=== PATIENT | female | born 1940 | race Caucasian/White ===

== ENCOUNTER 2016-07-04 04:49 | Observation (INO) | payer MEDICARE, BC, OTHER ==
--- NOTE | ~2016-07-04 | ST ---
Unit #: [id number] #: [id number] Patient: MISHA LEON [id number] [address] [address] [id number] I MR#: [id number] NAME: MISHA LEON : 1940 SEX: F STUDY DATE/TIME: 07/05/2016 UNIT: [facility] ROOM: [facility] STUDY DESCRIPTION: Attending Physician: Francisco Aguilar M.D. CARDIOLOGY REPORT EXAM Stress ECG Results included in stress nuclear and ECG combined report. Dictated by... Andry Levy/radha TD: 07/05/2016 22:00 JOB #: [id number] CARDIOLOGY REPORT Page 1 of 1 X Sanket Carter MD CARDIOLOGY REPORT
--- NOTE | ~2016-07-04 | EKG ---
PATIENT: MISHA LEON UNIT #: [id number] Ventricular Rate: 69 BPM Atrial Rate: 69 BPM P-R Interval: 172 ms QRS Duration: 94 ms Q-T Interval: 408 ms QTC Calculation(Bezet): 437 ms P [place]: 67 degrees Calculated R [place]: 7 degrees Calculated T [place]: 74 degrees Diagnosis Line: Normal sinus rhythm Diagnosis Line: Nonspecific T wave abnormality Diagnosis Line: Abnormal ECG Diagnosis Line: When compared with ECG of 29-DEC-2014 07:53, Diagnosis Line: Premature ventricular complexes are no longer Diagnosis Line: Present Diagnosis Line: Vent. rate has decreased BY 46 BPM Diagnosis Line: Incomplete right bundle branch block is no longer Diagnosis Line: Present Diagnosis Line: Criteria for Inferior infarct are no longer Diagnosis Line: Present Diagnosis Line: Confirmed by CECIL FUCHS MD ([id number]) on Diagnosis Line: 07/05/2016 8:46:52 AM INTERPRETING MD: JEF STEWART
--- NOTE | ~2016-07-04 | CR72 ---
[facility] A Service of [facility] & [facility] RADIOLOGY TEXT RESULTS PATIENT: MISHA LEON LOCATION: [facility] [id number] : 38 UNIT #: [id number] AGE: [address]: Francisco Aguilar MD SEX: F ORDER DR: [id number] [facility] [address] [place], [place] [address] [id number] I MR#: [id number] Acc #: [id number] NAME: MISHA LEON : 1940 SEX: F STUDY DATE/TIME: 07/04/2016 6:20 UNIT: [facility] ROOM: [facility] STUDY DESCRIPTION: CR Chest Single View Portable Attending Physician: Francisco Aguilar M.D. Ordering Physician: Tushar Campos M.D. Primary Care Physician: Primary Care Physician No MEDICAL IMAGING REPORT This report is preliminary unless electronic signature is present EXAM Portable chest one-view 07/04/2016 COMPARISON 12/29/2014 CLINICAL HISTORY: Chest pain and pressure for one night. FINDINGS Heart size within normal limits. No consolidation or effusion or pneumothorax. Osteopenia and chronic change in the left distal clavicle and AC joint but no acute bony abnormality. No acute findings. No definite interval change since 12/29/2014. Dictated by... Reyes Martinez M.D. THIS IS AN ELECTRONICALLY VERIFIED REPORT Reyes Martinez M.D. at 07/06/2016 1:49 PM VIOLET/rosalia TD: 07/04/2016 08:21 JOB #: [id number] MEDICAL IMAGING REPORT Page 1 of 1 COPY
--- NOTE | ~2016-07-04 | HP ---
Unit #: [id number] #: [id number] Patient: MISHA LEON [id number] [address] [address] [id number] E MR#: [id number] NAME: MISHA LEON ROOM: Age: 76 Sex: F Admission Date: 07/04/2016 : 1940 Attending Physician: Tushar Campos M.D. Primary Care Physician: No Primary Care Physician HISTORY AND PHYSICAL CHIEF COMPLAINT Chest pain. She is a 76-year-old female who lives in a chcf. She has a history of hypertension, high cholesterol, question of mild coronary disease. She came this morning. She has substernal chest pain. She was given nitroglycerin. At this moment, she is pain free. She denies orthopnea, PND, palpitations and syncope. PAST MEDICAL HISTORY Positive for: 1. Hypertension. 2. High cholesterol. 3. She also has a history of Parkinsonism and dementia. 4. Also has a history of frequent falls. 5. Seizure disorder. PAST SURGICAL HISTORY She has a history of: 1. Appendectomy. 2. Cholecystectomy. 3. Hip surgery. 4. Nerve stimulator. ALLERGIES She is allergic to Cipro, sulfa and heparin. MEDICATIONS 1. She takes Coreg 3.125 mg twice a day. 2. She takes hydralazine 25 mg three times a day. 3. Zocor 40 mg once a day. 4. Dilantin 300 mg p.o. daily. 5. Protonix 40 mg daily. 6. She also takes Remeron. FAMILY HISTORY Negative for premature CAD. SOCIAL HISTORY She doesn't smoke, doesn't drink. She lives in a chcf. REVIEW OF SYSTEMS The patient denies any blurred vision or headache. Denies any cough or sore throat, sputum and fever. Denies shortness of breath but has chest Unit #: [id number] #: [id number] Patient: MISHA LEON pain. Denies any palpitations or syncope. Denies any dysphagia, heartburn, diarrhea, constipation. Denies any back pain. The patient has stiffness and has difficulty walking. She walks with assistance. Denies any skin rash or any problem with her skin. All of the systems reviewed, they are negative. PHYSICAL EXAMINATION GENERAL: She is lying comfortably in bed. VITAL SIGNS: Heart rate is 80, blood pressure 140/60. She is breathing a respiratory rate of 16. HEENT: Eyes - conjunctivae normal. Pupils round, reactive. Oral mucosa is moist. No central cyanosis. NECK: She has no thyromegaly. Carotid upstroke is normal. No bruit. JVD is not elevated. CHEST: She is breathing normal. Clear on auscultation. CARDIAC EXAM: She has no parasternal lift. S1, S2 normally heard. No gallop, no murmur. ABDOMEN: Soft. Liver and spleen not enlarged. Abdominal aorta not palpable. Guaiac test not indicated. EXTREMITIES: She has no pedal edema. 2+ bilateral femoral and dorsalis pedis pulses. There is no clubbing. SKIN: No rash or abnormal pigmentation. NEUROLOGICAL EXAM: Muscle tone in the upper and lower extremities is slightly increased. There is some stiffness. Her mood is normal. She is oriented x3. DIAGNOSTIC STUDIES CARDIOVASCULAR: EKG showing normal sinus rhythm, normal EKG. LABORATORY: Her troponin is normal. Sodium is 129, potassium 3.5. All other blood work is normal. ASSESSMENT 1. Patient is definitely having unstable angina. 2. History of hypertension. 3. History of atrial fibrillation. 4. History of Parkinsonism with history of seizure disorders. PLAN I will admit her on a monitored bed. We will give her aspirin and rule out myocardial infarction. I will continue with the Coreg but add low dose Norvasc. I will do an echo and Lexiscan Cardiolite. If her Cardiolite is positive, she will need cardiac cath. Otherwise, we will treat her medically. We will also have hospitalist service to look after medication for her parkinsonism. Dictated by Andry Penaloza/christian TD: 07/04/2016 09:29 JOB #: [id number] Unit #: [id number] #: [id number] Patient: MISHA LEON HISTORY AND PHYSICAL Page 1 of 1 X Francisco Aguilar MD HISTORY AND PHYSICAL
--- NOTE | ~2016-07-04 | TH ---
Unit #: [id number] #: [id number] Patient: MISHA LEON [id number] [address] [address] [id number] I MR#: [id number] NAME: MISHA LEON : 1940 SEX: F STUDY DATE/TIME: 07/05/2016 UNIT: [facility] ROOM: [facility] STUDY DESCRIPTION: Attending Physician: Francisco Aguilar M.D. CARDIOLOGY REPORT EXAM Stress nuclear and ECG combined. INDICATION Chest pain, inability to exercise adequately. SUMMARY Patient received Lexiscan intravenously while at rest, as well as technetium 99 Cardiolite 11.01 and 32.5 mCi at rest and stress, respectively. Appropriate views were obtained. FINDINGS The patient did not experience any symptoms during the stress. The heart rate increased from 83 to 122 (85%), and the blood pressure increased from 143/86 to 155/94, transiently decreasing to 132/86. The patient did not experience chest pain during the study. The rest ECG is abnormal with 0.[address] depression in leads V4-V6 and in lead I. The ST segments are somewhat squared off in lead AVF. With stress, there was slight exaggeration of the changes noted above but no diagnostic ST shifts. There were no dysrhythmias or heart block. Perfusion images demonstrate normal perfusion throughout the myocardium both at rest and stress. There is no significant patient motion noted. There is normal lung uptake and no LV or RV enlargement. Summed stress score is zero. Gated perfusion wall motion analysis demonstrates end-diastolic volume 50 mL and ejection fraction greater than 65%. IMPRESSION 1. Stress nuclear study shows no evidence of ischemia or infarction. This is a normal study. Patient may be discharged. 2. Small ventricle with normal wall motion and excellent ejection fraction. 3. ST changes may represent left ventricular hypertrophy but no significant ischemic cardiac disease identified. 1. Dictated by... Sanket Caretr M.D. Perico TD: 07/05/2016 21:58 Unit #: [id number] #: [id number] Patient: MISHA LEON JOB #: [id number] CARDIOLOGY REPORT Page 1 of 1 X Sanket Carter MD CARDIOLOGY REPORT
--- NOTE | ~2016-07-04 | DS ---
Unit #: [id number] #: [id number] Patient: MISHA PAL [id number] [place], [place] [address] [id number] I MR#: [id number] NAME: MISHA PAL ROOM: 568 Age: 76 Sex: F Admission Date: 07/04/2016 : 1940 Discharge Date: 07/05/2016 Attending Physician: Francisco Aguilar M.D. DISCHARGE SUMMARY ADMITTING DIAGNOSES 1. Unstable angina. 2. Hypertension. 3. History of atrial fibrillation. 4. History of parkinsonian with history of seizure disorder. 5. Hyponatremia. 6. History of coronary artery disease. DISCHARGE DIAGNOSES 1. Presumed noncardiac chest pain based on testing. 2. Hypertension. 3. Paroxysmal atrial fibrillation. 4. Parkinsonian with history of seizures. 5. History of coronary artery disease. PROCEDURE PERFORMED Chest x-ray which shows heart size within normal limits. No consolidation, effusion, or pneumothorax. No acute findings. HOSPITAL COURSE Ms. Pal is a 76-year-old female who lives in a half-way. She was brought to [facility] with substernal chest pain. She was given nitroglycerin with relief of her pain. She was evaluated by serial enzymes and complete a Cardiolite stress test. This has been read as normal per Dr. Carter showing no ischemia. Her hyponatremia has resolved. She has also displayed some hypokalemia which has been replaced. She will be treated medically. In addition, oral medications have been added to her regime including aspirin and Spironolactone, as well as Norvasc 5 mg daily. Currently, she has been evaluated by Dr. Carter, who feels as though she is ready for discharge and is stating that she is having no further chest pain. DIAGNOSTIC STUDIES LABORATORY: Troponin less than 0.03 x3 and less than 0.05 x2 upon arrival at point of care. Sodium 133, potassium 3.5, creatinine 0.4, BUN 7, glucose 102, AST 24, ALT 15, and albumin 3.9. Hemoglobin 13, hematocrit 38.6, platelets 262,000, and white blood cell count 5.4. Dilantin level 5.7. BNP of 81. PT 11.4 and INR 1.1. Unit #: [id number] #: [id number] Patient: MISHA PAL DISCHARGE MEDICATIONS 1. Sodium bicarbonate 650 mg daily. 2. Tylenol 2 tablets q.4 hours p.r.n. for mild pain. 3. Maalox 30 mg 4 times daily p.r.n. for constipation. 4. Primidone 250 mg b.i.d. 5. Lexapro 5 mg daily. 6. Remeron 15 mg at bedtime. 7. Claritin 10 mg daily. 8. Carvedilol 3.125 mg b.i.d. 9. Norvasc 5 mg daily. 10. Docusate sodium 100 mg daily, hold for loose stool. 11. Senokot 17.2 mg q.p.m. p.r.n. 12. Artificial Tears 1 drop to each eye t.i.d. 13. Zocor 10 mg daily. 14. Dilantin 300 mg at bedtime. 15. Hydralazine 25 mg t.i.d. p.r.n. for systolic blood pressure greater than 150. 16. Melatonin 6 mg q.p.m. 17. Aspirin 81 mg daily. 18. Spironolactone 25 mg daily. 19. Protonix 40 mg daily. 20. Nitroglycerin 0.4 mg sublingual p.r.n. 21. Vitamin B12 chewable tablet daily. Of note, changes to her home medication list include addition of Norvasc, aspirin, and Spironolactone, and change of hydralazine to p.r.n. instead of scheduled daily. All other medications remain the same. DISCHARGE INSTRUCTIONS 1. Diet: Low-sodium diet. 2. Activity: As tolerated. 3. Followup: With Dr. Carter in the next three to four weeks. 1. Dictated by... Brandon Perez.P.R.N. for Andry Levy TD: 07/05/2016 16:33 JOB #: [id number] DISCHARGE SUMMARY Page 1 of 1 X X DISCHARGE SUMMARY
--- NOTE | ~2016-07-04 | CO ---
Unit #: [id number] #: [id number] Patient: MISHA LEON [id number] [place], [place] [address] [id number] I MR#: [id number] NAME: MISHA LEON ROOM: [address] Age: 76 Sex: F Admission Date: 07/04/2016 : 1940 Attending Physician: Francisco Aguilar M.D. Primary Care Physician: No Primary Care Physician Consultation Date: 07/04/2016 CONSULTATION REPORT REASON FOR CONSULTATION Medical management. HISTORY OF PRESENT ILLNESS The patient is a 76-year-old female with a past medical history of coronary artery disease, atrial fibrillation, hypertension, hyperlipidemia, Parkinson disease, seizure disorder, cerebrovascular accident, GERD, depression, degenerative joint disease, von Willebrand disease, who presented to the emergency department from the group home for evaluation of the above. The patient states that she was in her usual state of health until the morning of admission when she awoke from sleep with chest pain. This occurred around 2 a.m. She states that the pain was in her mid chest. She described it as "pressure." It radiated to the left arm. She did have associated shortness of breath. She denies any nausea or diaphoresis. She received nitroglycerin by EMS. She was brought to the emergency department for further evaluation. In the emergency department, EKG showed normal sinus rhythm with a rate of 69 beats/minute. There is T wave flattening in V2 through V6. Initial cardiac enzymes are negative. She was admitted by cardiology for further evaluation. HIPS was consulted for medical management. Also of note, the patient received aspirin in the emergency department as well as nitroglycerin. Nitro paste has also been ordered. PAST MEDICAL HISTORY 1. Admission to [facility] December 29 through the 2014 for fever and possible healthcare-associated pneumonia. She also had altered mental status. 2. Coronary artery disease. I don't see a cardiac catheterization report in [facility]. Status post cardiac stent placement. 3. History of atrial fibrillation per group home records. She does not appear to be on chronic anticoagulation. She is on carvedilol. She is currently in sinus rhythm. 4. Hypertension. 5. Hyperlipidemia. 6. Parkinson disease, status post neuro stimulator. 7. Seizure disorder, maintained on Dilantin. 8. History of cerebrovascular accident. 9. GERD. 10. Depression. 11. Degenerative joint disease. 12. Possible von Willebrand disease. Unit #: [id number] #: [id number] Patient: MISHA LEON PAST SURGICAL HISTORY 1. Appendectomy. 2. Cholecystectomy. 3. Hysterectomy. 4. Tonsillectomy. 5. Left hip surgery. 6. Neuro stimulator. 7. Cardiac stent placement. SOCIAL HISTORY The patient is at a group home. There is no tobacco or alcohol use. She walks with a rolling walker. Her code status is a DO NOT RESUSCITATE per group home records. FAMILY HISTORY Notable for coronary artery disease. ALLERGIES Sulfa, ciprofloxacin, heparin. HOME MEDICATIONS 1. Protonix. 2. Sodium bicarb. 3. Carvedilol. 4. Mysoline. 5. Artificial Tears. 6. Dilantin. 7. Melatonin. 8. Zocor. 9. Tylenol. 10. Senokot. 11. Nitroglycerin. 12. Maalox. 13. Doculase. 14. Vitamin B12. 15. Lexapro. 16. Hydralazine. 17. Claritin. 18. Remeron. 19. Simvastatin. REVIEW OF SYSTEMS A complete review of systems is negative except as indicated in the HPI. DIAGNOSTIC STUDIES CARDIOVASCULAR: EKG shows normal sinus rhythm with rate of 69 beats/minute. There is T wave flattening in leads V2 through V6. IMAGING: Chest x-ray shows nothing acute. LABORATORY: Troponin is less than 0.05. Complete blood count is essentially normal. INR is 1.1. Comprehensive metabolic panel notable for sodium of 129, chloride is 96, BUN and creatinine 7 and 0.4 respectively, alkaline phosphatase is 104, BNP is 81. Unit #: [id number] #: [id number] Patient: MISHA LEON PHYSICAL EXAMINATION VITAL SIGNS: Temperature is 97.8, pulse 71, respirations 14, blood pressure 149/81. Oxygen saturation is 98% on room air. GENERAL: The patient is a very pleasant female who is awake and alert, in no acute distress. HEENT: The head is atraumatic. Mucous membranes are moist. NECK: Supple. Trachea is midline. CARDIOVASCULAR: Regular rate and rhythm. LUNGS: Clear to auscultation bilaterally with no increased work of breathing. ABDOMEN: Soft, nontender with bowel sounds present in all four quadrants. EXTREMITIES: Nontender with no pedal edema. NEURO: The patient is awake and alert. She follows commands. She is oriented x3. PSYCH: Mood and affect are normal. The patient is cooperative. SKIN: Skin of examined areas is warm and dry. ASSESSMENT The patient is a 76-year-old female with: 1. Chest pain: The patient was admitted by cardiology. Cardiolite has been ordered. 2. Hyponatremia: The patient's sodium is 129. It has been as low as 122 in the past on August 26, 2014. She is on Lexapro which could be contributing. 3. History of coronary artery disease, status post cardiac stent placement. 4. History of atrial fibrillation. 5. Hypertension. 6. Hyperlipidemia. 7. Parkinson disease, status post neuro stimulator. 8. Seizure disorder, maintained on Dilantin. 9. History of cerebrovascular accident. 10. Gastroesophageal reflux disease. 11. Depression. 12. Degenerative joint disease. 13. Possible von Willebrand disease. PLAN 1. Regarding chest pain, the patient is scheduled for stress test in the morning. 2. Regarding hyponatremia, I have ordered urine sodium and osmolality as well as serum osmolality. Chest x-ray showed no acute abnormality. I will hold Lexapro which could be contributing. The patient appears to be relatively euvolemic although she states that she has had decreased appetite and somewhat loose stool. I have also started normal saline at 75 mL/hour. 3. Regarding seizure disorder, the patient is on Dilantin. I have ordered a Dilantin level. She states that her last seizure was about a year ago. 4. Regarding Parkinson disease, the patient has a neuro stimulator. Thank you very much for the consultation. We will follow the patient along closely with you. Unit #: [id number] #: [id number] Patient: MISHA LEON Dictated by... Fiona Taveras M.D. ESTELA/christian TD: 07/04/2016 11:40 JOB #: [id number] CONSULTATION REPORT Page 1 of 1 X Fiona Taveras MD CONSULTATION REPORT
[~2016-07-04 04:49] MED LIST: AMBIEN PO; ANTACID650 MG PO; APRESOLINE PO; ARTIFICIAL TEAR1 DRP OU; ATIVAN PO; CARVEDILOL6.25 MG PO; COREG6.25 MG PO; DILANTIN PO; FIORICET1 TAB PO; FLONASE 0.05% N16 G1; HYDROCODON-ACE1 EAC7 PO; IMODIUM2 MG PO; MAALOX ADVANCE770 ML PO; MAALOX SUSPENS355 ML PO; MELATONIN3 MG PO; MIRAPEX0.25 MG PO; MYSOLINE250 M1 PO; NEURONTIN100 MG PO; NITROGLYGERIN0.4 MG SL; NITROSTAT0.4 MG SL; PRIMIDONE250 MG PO; PROTONIX PO; SENNA PO; SENNA8.6 M2 PO; TYLENOL325 M1 PO; ULTRAM PO; ZOCOR10 MG PO
[2016-07-04 06:21] LABS: POC - CKMB 1.3 ng/mL (0.0-7.9); POC - TROPONIN <0.05 ng/mL (<=0.05)
[2016-07-04 06:39] LABS: BASOPHIL% 0.8 % (0-2.5); EOSINOPHIL# 0.1 X10e3 (0-0.7); EOSINOPHIL% 2.2 % (0.0-7.0); HEMATOCRIT 36.7 % (35.0-45.0); HEMOGLOBIN 12.4 gm/dL (12.0-16.0); LYMPHOCYTE# 0.9 X10e3 (1.0-3.5); LYMPHOCYTE% 17.5 % (17.0-45.0); MEAN CELL VOLUME 91.8 FL (83-96); MEAN CORPUSCULAR HEMOGLOBIN 31.1 PG (28-34); MEAN CORPUSCULAR HGB CONC 33.9 g/dL (30-36); MEAN PLATELET VOLUME 7.1 FL (6.5-11.5); MONOCYTE# 0.6 X10e3 (0-1.0); MONOCYTE% 12.9 % (3.0-12.0); NEUTROPHIL# 3.3 X10e3 (1.5-7.1); NEUTROPHIL% 66.6 % (40-75); PLATELET COUNT 252 X10e3 (140-420); RED BLOOD COUNT 3.99 X10e (3.90-5.30); RED CELL DISTRIBUTION WIDTH 13.3 % (11.0-15.5)
[2016-07-04 06:41] LABS: DIFF IND NO
[2016-07-04 06:56] LABS: INR 1.1; PARTIAL THROMBOPLASTIN TIME 31.3 SECONDS (23.5-31.3); PROTHROMBIN TIME (PATIENT) 11.4 SECONDS (9.6-11.5)
[2016-07-04 07:20] LABS: ALBUMIN SERUM 3.7 g/dL (3.5-5.0); BILIRUBIN, DIRECT 0.1 mg/dL (0.0-0.2); BILIRUBIN,INDIRECT 0.3 mg/dL (0.0-0.9); BILIRUBIN,TOTAL 0.4 mg/dL (0.2-2.0); BUN/CREATININE RATIO 17.5; CALCIUM SERUM 8.8 mg/dL (8.4-10.2); CREATININE SERUM 0.4 mg/dL (0.6-1.4); GLOM FILT RATE Estimated 99.8 mL/min (>60); POTASSIUM 3.5 mmol/L (3.5-5.1); PROTEIN TOTAL SERUM 6.7 g/dL (6.0-8.3)
[2016-07-04] MEDS ORDERED: MAALOX MAXIMUM355 ML PO (10:22)
[2016-07-04] MEDS ORDERED: DOC-Q-LACE100 MG PO (10:25)
[2016-07-04] MEDS ORDERED: VITAMIN B122500 MC1 PO (10:27)
[2016-07-04] MEDS ORDERED: LEXAPRO5 MG PO (10:27)
[2016-07-04] MEDS ORDERED: ARTIFICIAL TEAR15 M9 OU (10:28)
[2016-07-04] MEDS ORDERED: HYDRALAZINE HCL25 MG PO (10:29)
[2016-07-04] MEDS ORDERED: ZOCOR-BORROW, D10 MG PO (10:30)
[2016-07-04] MEDS ORDERED: CLARITIN10 M3 PO (10:30)
[2016-07-04] MEDS ORDERED: REMERON15 MG PO (10:31)
[2016-07-04] MEDS ORDERED: SIMVASTATIN10 MG PO (10:37)
[2016-07-04 20:01] LABS: BUN/CREATININE RATIO 13.33; CALCIUM SERUM 8.7 mg/dL (8.4-10.2); CREATININE SERUM 0.6 mg/dL (0.6-1.4); GLOM FILT RATE Estimated 87.3 mL/min (>60); POTASSIUM 3.5 mmol/L (3.5-5.1)
[2016-07-04 22:02] LABS: SODIUM URINE RANDOM 57 mmol/L
[2016-07-04 22:50] LABS: OSMOLALITY,URINE 193 mOsmo/kg (250-900)
[2016-07-05 06:39] LABS: HEMATOCRIT 38.6 % (35.0-45.0); MEAN CELL VOLUME 91.5 FL (83-96); MEAN CORPUSCULAR HEMOGLOBIN 30.7 PG (28-34); MEAN CORPUSCULAR HGB CONC 33.6 g/dL (30-36); RED BLOOD COUNT 4.22 X10e (3.90-5.30); RED CELL DISTRIBUTION WIDTH 13.6 % (11.0-15.5); WHITE BLOOD COUNT 5.4 X10e3 (4.0-10.5)
[2016-07-05 07:55] LABS: ALBUMIN SERUM 3.9 g/dL (3.5-5.0); BILIRUBIN,TOTAL 0.4 mg/dL (0.2-2.0); BUN/CREATININE RATIO 17.5; CALCIUM SERUM 8.8 mg/dL (8.4-10.2); CREATININE SERUM 0.4 mg/dL (0.6-1.4); GLOM FILT RATE Estimated 99.8 mL/min (>60); POTASSIUM 3.5 mmol/L (3.5-5.1); PROTEIN TOTAL SERUM 6.8 g/dL (6.0-8.3)
== END 2016-07-05 20:38 ==
LOC: CED 04:49 → CEDOF 09:04 → CED 09:04 → C5C 09:04 → CEDOF 15:00 → C5C 15:00 → CEDOF 16:40 → C5C 07-05 20:38
PROVIDERS: Emergency Medicine; Family Medicine; Internal Medicine Cardiovascular Disease
DX: R07.89 Other chest pain (principal); I10 Essential (primary) hypertension; I48.0 Paroxysmal atrial fibrillation; G20 Parkinson's disease; I25.10 Atherosclerotic heart disease of native coronary artery without angina pectoris; G40.909 Epilepsy, unspecified, not intractable, without status epilepticus; K21.9 Gastro-esophageal reflux disease without esophagitis; M85.89 Other specified disorders of bone density and structure, multiple sites; I51.7 Cardiomegaly; I08.2 Rheumatic disorders of both aortic and tricuspid valves; F32.9 Major depressive disorder, single episode, unspecified; E87.1 Hypo-osmolality and hyponatremia; Z86.73 Personal history of transient ischemic attack (TIA), and cerebral infarction without residual deficits; Z90.49 Acquired absence of other specified parts of digestive tract; Z90.710 Acquired absence of both cervix and uterus; Z88.2 Allergy status to sulfonamides; Z88.1 Allergy status to other antibiotic agents; Z88.8 Allergy status to other drugs, medicaments and biological substances; Z82.49 Family history of ischemic heart disease and other diseases of the circulatory system
CPT/HCPCS: 36415; 71010; 78452; 80048; 80053; 80076; 80185; 82553; 83880; 83930; 83935; 84300; 84484; 85025; 85027; 85610; 85730; 93005; 93017; 93306; 99285; A9500; G0378; J2785